=== PATIENT | female | born 1985 ===

== ENCOUNTER 2020-11-30 00:17 | Outpatient (CLI) | payer OTHER ==
[~2020-11-30 00:17] MED LIST: OMEPRAZOLE40 MG PO; PEPTO-BISMOL262 M1 PO; ZANTAC300 MG PO
== END 2020-11-30 00:18 | disposition home or self-care (01) ==
LOC: PPH VACUNA 00:17
DX: Z23 Encounter for immunization (principal)

== ENCOUNTER 2020-12-21 08:00 | Outpatient (CLI) | payer OTHER | END 2020-12-21 08:30 | disposition home or self-care (01) | LOC: PPH VACUNA 08:00 | DX: Z23 Encounter for immunization (principal) ==